=== PATIENT | female | born 2000 | race Two or more races ===

== ENCOUNTER 2023-04-10 10:36 | Inpatient (IN) | payer MEDICAID ==
[~2023-04-10] VITALS: Ht 167.6 cm; Wt 108.1 kg
[2023-04-10] MEDS ORDERED: HYDROcodone-ACET 5/325MG TAB PO ONE (12:00)
[2023-04-10] MEDS ORDERED: cefTRIAXone SOD 1,000 MG VL IM ONE (12:00)
[2023-04-10 12:01] LABS: Urine Bacteria FEW /hpf (None Seen); Urine Blood 3+ /uL (Negative); Urine Mucus FEW (None Seen); Urine Specific Gravity 1.033 (1.001-1.035); Urine WBC 8 /hpf (0 - 5)
[2023-04-10] MEDS ORDERED: IBUP600T28 PO (12:01)
[2023-04-10] MEDS ORDERED: BACDST PO (12:01)
[2023-04-10] MEDS ORDERED: SODIUM CHLORIDE 0.9% 2,000 ML IV ONE ×2 (12:15→17:45)
[2023-04-10 13:25] LABS: Eosinophils # (auto) 0 10 ^3/uL (0-0.8); Lymphocytes # (auto) 1.9 10 ^3/uL (0.4-5.4); Lymphocytes % (auto) 7.1 % (10.0-50.0); Neutrophils # (auto) 22.7 10 ^3/uL (1.6-8.6); Neutrophils % (auto) 85.6 % (37.0-80.0); White Blood Cell 26.5 10^3/uL (4.4-10.8)
[2023-04-10 13:26] LABS: Basophils # (auto) 0.1 10 ^3/uL (0-0.2); Basophils % (auto) 0.3 % (0.0-2.0); Eosinophils % (auto) 0.1 % (0.0-7.0); Hematocrit 40.3 % (36.0-46.0); Hemoglobin 12.9 g/dL (12.2-16.2); Mean Corpuscular Hemoglobin 24.3 pg (28.0-32.0); Mean Corpuscular Hgb Conc. 32.1 g/dL (32.0-36.0); Mean Corpuscular Volume 75.7 fL (80.0-100.0); Monocytes # (auto) 1.8 10 ^3/uL (0-1.3); Monocytes % (auto) 6.9 % (0.0-12.0); Red Blood Cells 5.32 10^6/uL (4.0-5.20); Red Cell Distribution Width 14.8 % (11.8-14.3)
[2023-04-10 14:13] LABS: Albumin 2.9 g/dL (3.4-5.0); Calcium 9.3 mg/dL (8.5-10.1); Potassium 3.7 mmol/L (3.5-5.1)
[2023-04-10 14:17] LABS: Bilirubin, Total 0.9 mg/dL (0.2-1.0); Total Protein 8.9 g/dL (6.4-8.2)
[2023-04-10] MEDS ORDERED: VANCOMYCIN 1GM/250ML 250 ML IV ONE (14:45)
[2023-04-10 14:59] LABS: BUN/Creatinine Ratio 13.8 (10.0-20.0)
[2023-04-10] MEDS ORDERED: NITROGLYCERIN 0.4 MG SL TAB SL PRN (17:30)
[2023-04-10] MEDS ORDERED: MORPHINE SULFATE INJ 2 MG/ml SYRG IV PRN ×2 (17:30→18:30)
[2023-04-10] MEDS ORDERED: HYDROcodone-ACET 5/325MG TAB PO PRN (17:30)
[2023-04-10] MEDS ORDERED: ACETAMINOPHEN 325 MG TAB PO PRN ×2 (17:30→18:30)
[2023-04-10] MEDS ORDERED: SODIUM CHLORIDE 0.9% 1,000 ML IV SCH (17:30)
[2023-04-10] MEDS ORDERED: ONDANSETRON HCL 4 MG/2 ML VIAL IV PRN (17:30)
[2023-04-10 17:41] LABS: Cholesterol 171 mg/dL (< 200)
[2023-04-10 17:44] LABS: HDL Cholesterol 24 mg/dL (40-59); LDL Cholesterol 131 mg/dL (< 100); Triglycerides 118 mg/dL (< 150)
[2023-04-10] MEDS ORDERED: VANCOMYCIN PER PHARMACY 0 MG IV SCH (17:45)
[2023-04-10] MEDS ORDERED: DEXTROSE (50%) 50ML SYRG IV PRN (17:45)
[2023-04-10 18:51] LABS: Alcohol, Urine < 3.0 mg/dL (0-10); Amphetamine Screen, Urine NEGATIVE (NEGATIVE); Barbiturate Scree,Urine NEGATIVE (NEGATIVE); Benzodiazephine Screen, Urine NEGATIVE (NEGATIVE); Cannabinoid Screen, Urine NEGATIVE (NEGATIVE); Cocaine Screen, Urine NEGATIVE (NEGATIVE); Opiate Scree,Urine NEGATIVE (NEGATIVE); Phencyclidine Screen, Urine NEGATIVE (NEGATIVE)
[2023-04-10] MEDS: CEFEPIME 1GM/ 50ML 50 ML IV SCH (20:37)
[2023-04-10] MEDS: SODIUM CHLORIDE 0.9% 1,000 ML IV SCH ×2 (20:37→23:07)
[2023-04-10 22:00] VITALS: BP 109/58
[2023-04-10] MEDS: ACCU-CHEK COMFORT CURVE STRIP VI SCH (22:09)
[2023-04-10] MEDS: HYDROcodone-ACET 5/325MG TAB PO PRN (22:17)
[2023-04-10] MEDS: INSULIN LANTUS (GLARGINE) 1 /0.01ml (100units/ml) SC SCH (22:18)
[2023-04-10] MEDS: InsuLIN REG 1unit/0.01ml Soln (100units/ml) SC SCH (22:18)
[2023-04-11] VITALS (7 sets, daily range): BP systolic 86–121; BP diastolic 46–73
[2023-04-11] MEDS: SODIUM CHLORIDE 0.9% 1,000 ML IV SCH ×3 (00:25→14:42)
[2023-04-11] MEDS: VANCOMYCIN 1GM/250ML 250 ML IV SCH ×3 (01:59→22:57)
[2023-04-11] MEDS: CEFEPIME 1GM/ 50ML 50 ML IV SCH ×3 (02:00→17:54)
[2023-04-11 06:46] LABS: Basophils # (auto) 0 10 ^3/uL (0-0.2); Basophils % (auto) 0.2 % (0.0-2.0); Eosinophils # (auto) 0.1 10 ^3/uL (0-0.8); Eosinophils % (auto) 0.3 % (0.0-7.0); Lymphocytes # (auto) 1.9 10 ^3/uL (0.4-5.4); Lymphocytes % (auto) 10.3 % (10.0-50.0); Mean Corpuscular Hemoglobin 24.5 pg (28.0-32.0); Mean Corpuscular Hgb Conc. 32.2 g/dL (32.0-36.0); Mean Corpuscular Volume 76.1 fL (80.0-100.0); Monocytes # (auto) 1.7 10 ^3/uL (0-1.3); Monocytes % (auto) 9.1 % (0.0-12.0); Neutrophils # (auto) 14.8 10 ^3/uL (1.6-8.6); Neutrophils % (auto) 80.1 % (37.0-80.0); Red Blood Cells 4.07 10^6/uL (4.0-5.20); Red Cell Distribution Width 14.6 % (11.8-14.3); White Blood Cell 18.5 10^3/uL (4.4-10.8)
[2023-04-11] MEDS: HYDROcodone-ACET 5/325MG TAB PO PRN (06:57)
[2023-04-11] MEDS: InsuLIN REG 1unit/0.01ml Soln (100units/ml) SC SCH ×4 (07:02→21:29)
[2023-04-11] MEDS: ACCU-CHEK COMFORT CURVE STRIP VI SCH ×4 (07:03→22:00)
[2023-04-11 07:11] LABS: Albumin 1.8 g/dL (3.4-5.0); Calcium 6.9 mg/dL (8.5-10.1)
[2023-04-11 07:16] LABS: BUN/Creatinine Ratio 11.9 (10.0-20.0); Bilirubin, Total 0.6 mg/dL (0.2-1.0); Total Protein 5.6 g/dL (6.4-8.2)
[2023-04-11 08:22] LABS: Potassium 2.7 mmol/L (3.5-5.1)
[2023-04-11] MEDS ORDERED: ENOXAPARIN SOD 40 MG/0.4 ML SYRINGE SC SCH (10:00)
[2023-04-11] MEDS ORDERED: POTASSIUM CHL 20 Meq TABLET PO ONE (14:45)
[2023-04-11] MEDS: INSULIN LANTUS (GLARGINE) 1 /0.01ml (100units/ml) SC SCH (21:35)
[2023-04-12] MEDS: CEFEPIME 1GM/ 50ML 50 ML IV SCH ×3 (02:55→21:56)
[2023-04-12 05:00] VITALS: BP 120/75
[2023-04-12] MEDS: ACCU-CHEK COMFORT CURVE STRIP VI SCH ×4 (06:16→21:49)
[2023-04-12] MEDS: InsuLIN REG 1unit/0.01ml Soln (100units/ml) SC SCH ×4 (06:26→21:51)
[2023-04-12 06:36] LABS: Basophils # (auto) 0 10 ^3/uL (0-0.2); Basophils % (auto) 0.3 % (0.0-2.0); Eosinophils # (auto) 0.1 10 ^3/uL (0-0.8); Lymphocytes # (auto) 2.4 10 ^3/uL (0.4-5.4); Mean Corpuscular Volume 77.9 fL (80.0-100.0)
[2023-04-12 06:40] LABS: Hematocrit 35.3 % (36.0-46.0); Lymphocytes % (auto) 18.1 % (10.0-50.0); Mean Corpuscular Hemoglobin 24.3 pg (28.0-32.0); Mean Corpuscular Hgb Conc. 31.1 g/dL (32.0-36.0); Monocytes # (auto) 1.1 10 ^3/uL (0-1.3); Neutrophils # (auto) 9.5 10 ^3/uL (1.6-8.6); Neutrophils % (auto) 72.6 % (37.0-80.0); Red Blood Cells 4.53 10^6/uL (4.0-5.20); Red Cell Distribution Width 14.9 % (11.8-14.3); White Blood Cell 13.1 10^3/uL (4.4-10.8)
[2023-04-12 07:06] LABS: Calcium 8.6 mg/dL (8.5-10.1); Potassium 3.3 mmol/L (3.5-5.1)
[2023-04-12 07:13] LABS: BUN/Creatinine Ratio 14.8 (10.0-20.0); Bilirubin, Total 0.5 mg/dL (0.2-1.0); Total Protein 6.9 g/dL (6.4-8.2)
[2023-04-12] MEDS: VANCOMYCIN 1GM/250ML 250 ML IV SCH ×2 (08:24→18:02)
[2023-04-12 09:00] VITALS: BP 118/65
[2023-04-12 10:55] LABS: Hepatitis B Surface Antibody Negative (Negative)
[2023-04-12 12:56] VITALS: BP 113/55
[2023-04-12 13:47] LABS: Hepatitis C Antibody Negative (Negative)
[2023-04-12 13:52] LABS: Hepatitis A Total Antibody Positive (Negative)
[2023-04-12] MEDS ORDERED: VANCOMYCIN 1GM/250ML 250 ML IV SCH (14:00)
[2023-04-12 17:10] VITALS: BP 113/69
[2023-04-12] MEDS ORDERED: POTASSIUM CHL 20 Meq TABLET PO ONE ×2 (17:45→18:00)
[2023-04-12] MEDS ORDERED: ERGOCALCIFEROL 50,000 UNIT(1.25MG) CAP PO SCH (17:45)
[2023-04-12 18:23] LABS: Urine Bacteria NONE SEEN /hpf (None Seen); Urine Blood Negative /uL (Negative); Urine Mucus FEW (None Seen); Urine WBC 1 /hpf (0 - 5)
[2023-04-12 20:00] VITALS: BP 127/65
[2023-04-12] MEDS: INSULIN LANTUS (GLARGINE) 1 /0.01ml (100units/ml) SC SCH (21:50)
[2023-04-12 22:15] VITALS: BP 127/65
[2023-04-13] MEDS: CEFEPIME 1GM/ 50ML 50 ML IV SCH ×3 (02:00→18:00)
[2023-04-13] MEDS: VANCOMYCIN 1GM/250ML 250 ML IV SCH ×3 (02:42→18:00)
[2023-04-13] MEDS: ACCU-CHEK COMFORT CURVE STRIP VI SCH ×3 (05:45→17:00)
[2023-04-13] MEDS: InsuLIN REG 1unit/0.01ml Soln (100units/ml) SC SCH ×3 (05:46→17:00)
[2023-04-13 05:50] VITALS: BP_SYST 119; BP_SYST 126; BP_DIAS 58; BP_DIAS 85
[2023-04-13 07:25] LABS: Albumin 2.2 g/dL (3.4-5.0); Calcium 8.6 mg/dL (8.5-10.1); Magnesium 2.2 mg/dL (1.6-2.6); Potassium 3.7 mmol/L (3.5-5.1)
[2023-04-13 07:28] LABS: BUN/Creatinine Ratio 15.4 (10.0-20.0); Bilirubin, Total 0.3 mg/dL (0.2-1.0); Phosphorus 4.2 mg/dL (2.5-4.90)
[2023-04-13 13:00] VITALS: BP 127/82
[2023-04-13 16:59] VITALS: BP 126/76
[2023-04-13 17:16] VITALS: BP 126/76
== END 2023-04-13 17:50 | disposition home or self-care (01) | DRG 720 ==
LOC: ER 10:36 → TELE 18:29 → TELE-WESTW 23:00 → WEST WING 04-12 16:26 → TELE-WESTW 04-12 17:31 → WEST WING 04-13 05:51
PROVIDERS: ADMIT Registered Nurse; ATTEND Internal Medicine
DX: A41.9 Sepsis, unspecified organism (principal); E43 Unspecified severe protein-calorie malnutrition; L02.212 Cutaneous abscess of back [any part, except buttock and flank]; L03.312 Cellulitis of back [any part except buttock and flank]; E66.01 Morbid (severe) obesity due to excess calories; E11.65 Type 2 diabetes mellitus with hyperglycemia; N30.00 Acute cystitis without hematuria; E55.9 Vitamin D deficiency, unspecified; Z68.39 Body mass index [BMI] 39.0-39.9, adult; Z83.3 Family history of diabetes mellitus
CPT/HCPCS: 36415; 72128; 80053; 80061; 80202; 80307; 81001; 82306; 82962; 83036; 83605; 83735; 84100; 84132; 84443; 85025; 86703; 86704; 86706; 86708; 86803; 87040; 87077; 87186; 87205; 87340; 96365; 96372; G0378; J0696; J1815